=== PATIENT | male | born 1970 | race Caucasian/White ===

== ENCOUNTER 2019-04-14 05:14 | Inpatient (IN) | payer MEDICAID, OTHER ==
[2019-04-14] VITALS (20 sets, daily range): BP systolic 87–128; BP diastolic 59–97; PULSE 66–93; RESP 8–20; Ht 180.3 cm; Wt 100.0 kg
[~2019-04-14] VITALS: Ht 180.3 cm; Wt 100.0 kg
[2019-04-14] MEDS ORDERED: SOD CHLORIDE 0.9% 1,000 ML IV STA (05:20)
--- NOTE | 2019-04-14 05:24 | ERD ---
ER Documentation Chief Complaint Chief Complaint BIB RA81 for CP HPI This is a 49-year-old male with a past medical history of hypertension, hyperlipidemia, coronary artery disease with a previous CO status post stenting, noncompliant on Plavix, daily current tobacco and alcohol abuse, who is presenting with sudden onset moderate mid substernal sharp pressure-like chest pain radiating to both arms. This feels like his previous CO. He endorses shortness of breath. He was also very diaphoretic. He is nauseated but did not vomit. He feels lightheaded. The patient also had chest pain last night as well, but he took aspirin and the pain went away. Today, his symptoms did not go away. An ambulance was called. The patient was given aspirin and nitroglycerin in route to the hospital. The EKG showed an inferior STEMI. A code STEMI was called prior to patient arrival. Paramedics report that the patient was hypotensive in route to the hospital. The patient denies feeling sick recently. The patient denies fever or chills. The patient has had no headache or vision changes. The patient does not endorse neck or back pain. The patient denies abdominal pain. The patient denies changes to bowel movements or urination. The patient has had no focal deficits. The patient has had no weakness or numbness or tingling to the face or extremities. ROS All systems reviewed and are negative except as per history of present illness. Allergies Allergies: Coded Allergies: No Known Allergy (Unverified , 04/14/19) PMhx/Soc History of Surgery: Yes (angiogram w/ stent placement) Hx Cardiac Disorders: Yes (htn, cholesterol, CO) Hx Alcohol Use: Yes (social) Hx Substance Use: No Hx Tobacco Use: Yes Smoking Status: Current every day smoker FmHx Family History: No diabetes Physical Exam Vitals Vital Signs Date Temp Pulse Resp B/P (MAP) Pulse Ox O2 O2 Flow FiO2 Time Delivery Rate 04/14/19 Nasal 2 05:22 Cannula 04/14/19 98.0 79 22 136/105 95 05:16 (115) Physical Exam Const: In distress Head: Atraumatic Eyes: Normal Conjunctiva ENT: Normal External Ears, Nose and Mouth. Neck: Full range of motion. No meningismus. Resp: Clear to auscultation bilaterally Cardio: Regular rate and rhythm, no murmurs Abd: Soft, non tender, non distended. Normal bowel sounds Skin: No petechiae or rashes. Diaphoretic. Back: No midline or flank tenderness Ext: No cyanosis, or edema Neur: Awake and alert Psych: Anxious Result Diagram: 04/14/19518 Results 24 hrs Laboratory Tests Test 04/14/19 05:19 White Blood Count 14.1 10^3/ul Red Blood Count 4.88 10^6/ul Hemoglobin 14.5 g/dl Hematocrit 42.6 % Mean Corpuscular Volume 87.3 fl Mean Corpuscular Hemoglobin 29.7 pg Mean Corpuscular Hemoglobin Concent 34.0 g/dl Red Cell Distribution Width 13.1 % Platelet Count 312 10^3/UL Mean Platelet Volume 9.9 fl Immature Granulocytes % 0.600 % Neutrophils % 48.5 % Lymphocytes % 38.5 % Monocytes % 6.5 % Eosinophils % 5.1 % Basophils % 0.8 % Nucleated Red Blood Cells % 0.0 /100WBC Immature Granulocytes # 0.090 10^3/ul Neutrophils # 6.8 10^3/ul Lymphocytes # 5.4 10^3/ul Monocytes # 0.9 10^3/ul Eosinophils # 0.7 10^3/ul Basophils # 0.1 10^3/ul Nucleated Red Blood Cells # 0.0 10^3/ul Current Medications Medications Dose Sig/Ray Start Time Status Last (Trade) Ordered Route PRN Stop Time Admin Dose Reason Admin Sodium 1,000 ml @ Q1H STAT 04/14/19 04/14/19 Chloride 1,000 mls/hr IV 05:20 05:24 04/14/19 06:19 Fentanyl 50 mcg ONCE ONCE 04/14/19 DC 04/14/19 (Sublimaze) IV 05:30 05:25 04/14/19 05:31 Lidocaine 20 ml STK-MED 04/14/19 DC (Xylocaine ONCE .ROUTE 05:29 1% (Mdv) 20 04/14/19 05:30 ml) Iohexol 50 ml STK-MED 04/14/19 DC (Omnipaque ONCE .ROUTE 05:29 350mg/ ml) 04/14/19 05:30 Iodixanol 100 ml STK-MED 04/14/19 DC (Visipaque ONCE .ROUTE 05:29 Locm) 04/14/19 05:30 Heparin 1,500 ml @ STK-MED 04/14/19 DC Sodium/ ud ONCE .ROUTE 05:29 Sodium 04/14/19 05:30 Chloride Clopidogrel 600 mg ONCE ONCE 04/14/19 DC 04/14/19 Bisulfate PO 05:30 05:34 (plaVIX) 04/14/19 05:32 Heparin 5,000 unit ONCE ONCE 04/14/19 DC 04/14/19 Sodium IV 05:30 05:33 (Porcine) 04/14/19 05:32 (Heparin (1000 Units/ml)) 1,000 mcg STK-MED 04/14/19 DC Nitroglycerin ONCE .ROUTE 05:41 04/14/19 05:42 (Nitroglyceri n (Intracoronar y)) Procedures/MDM MDM The patient's presentation warrants further investigation. Previous medical records, if available, were reviewed. LABS The patient's laboratory testing was obtained and reviewed. No emergent treatment was required unless described below. CBC: Leukocytosis without shift, likely reactive, low clinical suspicion for an infection. No E/o severe anemia or thrombocytopenia Chemistry: Pending PT/INR: No E/o significant coagulopathy Troponin: Pending BNP: Pending EKG EKG read by me: Rate/Rhythm: Regular rate and rhythm at a rate of 80 bpm Intervals: Normal [place]: Normal Impression: ST elevations in the inferior leads with anterio lateral reciprocal changes concerning for an inferior CO. IMAGING Imaging and Radiology interpretation reviewed. CXR FINDINGS: The heart is not enlarged. Mediastinum is not widened. No hilar masses seen. Lungs are clear of any infiltrates. There is no effusion or pneumothorax. The osseous structures appear normal. IMPRESSION: No evidence for active cardiopulmonary disease. Electronically viewed and signed by Eliel Mckeon MD, on 04/14/2019 05:44 TREATMENT/DISPOSITION The patient presents for symptoms and EKG findings most consistent with an inferior STEMI. A code STEMI was initiated prior to arrival to the emergency department at 5:[address] Laughlin was notified at 5:03 AM. She recommended that the patient be bolused with heparin and Plavix. This was ordered per her instructions. The patient was reportedly hypotensive prior to arrival, but the patient's blood pressure had improved when assessed in the ER. The patient was transferred to the cardiac Direct Service Professional at 5:37 AM. ADMISSION At this time, I feel that the patient requires admission for further evaluation and management. The patient will be admitted to [facility] in accordance with the patient's insurance. The patient was accepted by Dr. Frausto at 05:48 AM to the ICU. Disclaimer: Inadvertent spelling and grammatical errors are likely due to E HR/dictation software use and do not reflect on the overall quality of patient care. Note that the electronic time recorded on this note does not necessarily reflect the actual time of the patient encounter. CRITICAL CARE NOTE Time: 30 minutes excluding all billable procedures. Treatments/Evaluations: The patient was at risk of hemodynamic compromise. Timing of critical care involved close serial monitoring, evaluation of the patient's medical record including previous records & current laboratory/imaging studies, potential interventions for prevention of hemodynamic/ cardiopulmonary/ neurologic compromise, maintaining tight fluid balance, and any discussions with the family and/or consultants regarding the patient's status and prognosis. Departure Diagnosis: Primary Impression: Acute inferior myocardial infarction Additional Impressions: ST elevation myocardial infarction (STEMI) Involved coronary artery: unspecified coronary artery Qualified Codes: I21.3 - ST elevation (STEMI) myocardial infarction of unspecified site Chest pain Chest pain type: unspecified Qualified Codes: R07.9 - Chest pain, unspe cified Diaphoresis Leukocytosis Leukocytosis type: unspecified Qualified Codes: D72.829 - Elevated white blood cell count, unspecified Condition: LUPE Reeves MD April 14, 2019 05:24
[2019-04-14] MEDS ORDERED: IODIXANOL LOCM 100 ML BTL ONE ×5 (05:29→08:44)
[2019-04-14] MEDS ORDERED: IOHEXOL 350MG/ML 50 ML BTL ONE (05:29)
[2019-04-14] MEDS ORDERED: LIDOCAINE 1% (MDV) 20 ML INJ ONE ×2 (05:29→07:28)
[2019-04-14] MEDS ORDERED: FENTAnyl 50 MCG/ML VIAL IV ONE (05:30)
[2019-04-14] MEDS ORDERED: CLOPIDOGREL 75 MG TAB PO ONE (05:30)
[2019-04-14] MEDS ORDERED: HEPARIN 1000 UNITS/ML 10 ML INJ IV ONE (05:30)
[2019-04-14] MEDS ORDERED: VERAPAMIL 5 MG INJ ONE (05:41)
[2019-04-14] MEDS ORDERED: NITROGLYCERIN (IC) 100 MCG/ML INJ ONE (05:41)
--- NOTE | 2019-04-14 05:50 | CONS ---
Assessment/Plan Assessment/Plan Hospital Course (Demo Recall) 49 yo with STEMI inferior wall in setting of stent 8 months ago and medication noncompliance Impression: STEMI inferior wall Tobacco abuse Hypercholesterolemia Medication noncompliance Plan: Coronary angiography. Risks and benefits reviewed and he agrees to proceed. Echo after procedure. Will psychologist counseling on smoking cessation, lifestyle. He received asa 325, heparin 5000, and clopidogrel 600 mg loading dose (pt chronically on clopidogrel but noncompliant). Consultation Date/Type/Reason Admit Date/Time 04/14/19 Date of Consultation: April 14, 2019 Type of Consult Cardiology Reason for Consultation STEMI Requesting Provider: LUPE SPRINGER MD Date/Time of Note DATE: 04/14/19 TIME: 05:45 Hx of Present Illness 49 yo with h/o CAD, 4 stents, CO with most recent stent 8 months ago, had acute onset cp one hour prior to arrival, a/w diaphoresis. Pain persists at present, ekg shows nsr with stemi inferior wall. Pt has not taken meds for "a few days", normally takes clopidogrel and "cholesterol med". He smokes. He drank 5-6 shots of alcohol last night, ended the evening around 0100. Follows with a audiovisual production specialist at [facility]. Constitutional: diaphoresis Eyes: no complaints ENT: no complaints Respiratory: shortness of breath Cardiovascular: chest pain Gastrointestinal: no complaints Genitourinary: no complaints Musculoskeletal: no complaints Skin: no complaints Neurologic: no complaints Endocrine: no complaints Lymphatic: no complaints Psychological: no complaints Immunologic: no complaints Past Medical History Medical History: coronary artery disease, high cholesterol Medications Current Medications Sodium Chloride 1,000 ml @ 1,000 mls/hr Q1H STAT IV Last administered on 04/14/19at 05:24; Admin Dose 1,000 MLS/HR; Start 04/14/19 at 05:20; Stop 04/14/19 at 06:19 Ondansetron HCl (Zofran Inj) 4 mg ER BRIDGE PRN IV NAUSEA/VOMITING; Start 04/14/19 at 06:00; Stop 04/15/19 at 05:59 Acetaminophen (Tylenol Tab) 650 mg ER BRIDGE PRN PO .MILD PAIN 1-3 OR TEMP; Start 04/14/19 at 06:00; Stop 04/15/19 at 05:59 Allergies: Coded Allergies: No Known Allergy (Unverified , 04/14/19) Past Surgical History Past Surgical Hx: angioplasty Family History Significant Family History: no pertinent family hx Social History Alcohol Use: occasionally Smoking Status: Current every day smoker Exam/Review of Systems Vital Signs Vitals Vital Signs Date Temp Pulse Resp B/P (MAP) Pulse Ox O2 O2 Flow FiO2 Time Delivery Rate 04/14/19 Nasal 2 05:22 Cannula 04/14/19 98.0 79 22 136/105 95 05:16 (115) Exam Constitutional: alert, distress, other (obese) Psych: anxiety Head: normocephalic, atraumatic Eyes: EOMI, nl lids ENMT: nl external ears & nose Neck: supple; No jvd, No bruits Respiratory: clear to auscultation, normal air movement Cardiovascular: regular rate and rhythm; No murmurs/extra sounds Gastrointestinal: soft, non-tender; No hepatomegaly Musculoskeletal: nl extremities to inspection Extremities: No edema Neurological: nl mental status, nl speech Skin: diaphoresis Labs Result Diagram: 04/14/19518 Results 24hrs Laboratory Tests Test 04/14/19 05:19 White Blood Count 14.1 H Red Blood Count 4.88 Hemoglobin 14.5 Hematocrit 42.6 Mean Corpuscular Volume 87.3 Mean Corpuscular Hemoglobin 29.7 Mean Corpuscular Hemoglobin Concent 34.0 Red Cell Distribution Width 13.1 Platelet Count 312 Mean Platelet Volume 9.9 Immature Granulocytes % 0.600 H Neutrophils % 48.5 Lymphocytes % 38.5 Monocytes % 6.5 Eosinophils % 5.1 Basophils % 0.8 Nucleated Red Blood Cells % 0.0 Immature Granulocytes # 0.090 H Neutrophils # 6.8 Lymphocytes # 5.4 H Monocytes # 0.9 Eosinophils # 0.7 H Basophils # 0.1 Nucleated Red Blood Cells # 0.0 Imaging Imaging EKG shows NSR with ST elevations in inferior leads 2, 3, avf and reciprocal changes Medications Medications Current Medications Sodium Chloride 1,000 ml @ 1,000 mls/hr Q1H STAT IV Last administered on 04/14/19at 05:24; Admin Dose 1,000 MLS/HR; Start 04/14/19 at 05:20; Stop 04/14/19 at 06:19 Ondansetron HCl (Zofran Inj) 4 mg ER BRIDGE PRN IV NAUSEA/VOMITING; Start 04/14/19 at 06:00; Stop 04/15/19 at 05:59 Acetaminophen (Tylenol Tab) 650 mg ER BRIDGE PRN PO .MILD PAIN 1-3 OR TEMP; Start 04/14/19 at 06:00; Stop 04/15/19 at 05:59 BRANDY LAURENT April 14, 2019 05:50
[2019-04-14] MEDS ORDERED: MIDAZOLAM 1 MG/ML 2 ML INJ ONE ×2 (05:57→07:57)
[2019-04-14] MEDS ORDERED: FENTAnyl 50 MCG/ML VIAL ONE (05:58)
[2019-04-14] MEDS ORDERED: ACETAMINOPHEN 325 MG TAB PO PRN ×2 (06:00→09:00)
[2019-04-14] MEDS ORDERED: ONDANSETRON 4 MG INJ IV PRN (06:00)
[2019-04-14] MEDS ORDERED: EPTIFIBATIDE 100 ML IV ONE (06:39)
[2019-04-14] MEDS ORDERED: EPTIFIBATIDE 20 ML ONE (06:39)
[2019-04-14] MEDS ORDERED: HEPARIN 1000 UNITS/ML 10 ML INJ ONE (06:51)
[2019-04-14] MEDS ORDERED: SOD CHLORIDE 0.9% 1,000 ML IV SCH (08:47)
[2019-04-14] MEDS ORDERED: CLOPIDOGREL 75 MG TAB ONE (09:00)
[2019-04-14] MEDS ORDERED: HEPARIN 5,000 UNIT/1 ML VIAL ONE (09:00)
--- NOTE | 2019-04-14 09:10 | OPR ---
Date/Time of Note Date/Time of Note DATE: 04/14/19 TIME: 08:59 Operative Report Procedure Date: April 14, 2019 Preoperative Diagnosis STEMI inferior wall Postoperative Diagnosis same Operation/Procedure Performed cor angio left heart catheterization moderate sedation Stent placement to distal RCA with 2 stents Balloon angioplasty of the ostial PDA, prox RCA, and mid RCA Surgeon see signature line Stenocaptioner Dajuan JOURNEY LINEMAN Anesthesia Type: moderate sedation Estimated Blood Loss: 150 - 200 ml's Transfusion none Specimen none Grafts/Implants Bruno Resolute 3.0 x 16 and 3.5 x 30 mm stents to distal RCA Complications none Pt Condition Post Procedure: stable Disposition: other (ICU) Indications 49 yo with known cad presents with stemi inferior wall Procedure Description Informed consent obtained. Radial access obtained, 6 F sheath placed. Diagnostic images obtained w [place] and JR4 guide. More heparin given, ACT checked. A Horacio Blue wire was passed, 2.5 x 12 mm balloon inflated. Integrilin also given. MATTIE 3 flow established. However, guide support was poor from the radial and femoral access obtained with micropuncture. JR4 guide crossed the aortic valve and pressures measured, and pullback gradient measured. The RCA was engaged, vessel re-wired down the PDA, the ostial PDA ballooned with a 2.0 x 12 mm balloon. Then wire redirected down the PL branches. Stents would not cross, vessel was giacomo wired, and a 3.0 x 16 mm Resolute advanced to the distal lesion. The giacomo wire was pulled back, a guideliner advanced, and more proximal lesions in the RCA were ballooned to permit passage of a longer 3.5x30 mm Resolute stent. This was post-dilated with a 3.5x20 mm noncompliant balloon. Final images show mattie 3 flow and good apposition of the stents with no di ssection. Patient received 600 plavix and 325 asa prior to the procedure. Left the room in stable condition. Findings: Left main - ok LAD - proximal stent okay, the remainder of the stent is severely diffusely diseased without significant area for a JAIMES target. Diag also severely diseased diffusely Ramus- small, ostial 90% lesion LCX - small vessel with mild luminal irregularities RCA - large vessel, 60% prox, 50% mid, 100% distal. PDA 90% proximal. The posterolateral branches have severe diffuse disease LVEDP - 27 Interventional results: Distal RCA -- balloon angioplastied then 2 stents placed, Resolute 3.0x16 and 3.5x30 100%-->0% PDA ostium - balloon angioplastied, 90%-->50% mid RCA -- balloon angioplastied, 50%-->30% Proximal RCA -- balloon angioplastied, 60%-->30% Prox and mid RCA angioplastied to permit passage of stent. Ostial PDA angioplastied to prevent closure of the PDA with stenting of the distal RCA. BRANDY LAURENT April 14, 2019 09:10
[2019-04-14] MEDS: morphine 2 MG INJ IV PRN ×2 (10:22→14:50)
[2019-04-14] MEDS: METOPROLOL 25 MG TAB PO SCH ×2 (10:56→20:41)
--- NOTE | 2019-04-14 12:52 | HP ---
DATE OF ADMISSION: 04/14/2019 CHIEF COMPLAINT: Chest pain. HISTORY OF PRESENT ILLNESS: A 49-year-old male with known history of coronary artery disease, hyperl ipidemia, chronic smoking, and noncompliance with medical therapy, presented to emergency room with c omplaint of acute onset of chest pain which started about 1 hour prior to arrival. The patient had a ssociated shortness of breath and diaphoresis. Initial EKG showed acute inferior wall STEMI. The pa tient was at a libertarian the night prior to admission and drank several shots of alcohol. He had not bee n taking his usual medications for several days. The patient apparently takes Plavix and a statin. The patient was immediately taken to the dental laboratory assistant by Dr. Hill. He underwent 2 stent placement to RCA as well as balloon angioplasty. The LAD was found to be chronically stenosed. At the time of m y visit, he denies any chest pain or shortness of breath. PAST MEDICAL HISTORY: 1. Coronary artery disease. 2. History of angioplasty in the past. 3. Hyperlipidemia. 4. Nicotine addiction. SOCIAL HISTORY: Patient leaves at home. and son were at the bedside at the time of my visit. He admits to smoking cigarettes on a daily basis but drinks alcohol on social occasions. The patient had 5 to 6 shots of alcohol prior to onset of his symptoms. PHYSICAL EXAMINATION: GENERAL: Well-developed, well-nourished male who is in no apparent distress. VITAL SIGNS: Stable. He is afebrile. HEENT: Extraocular muscles intact. Pupils equal and reactive to light bilaterally. Sclerae are ani cteric. Oropharynx is clear and moist. NECK: Supple, no JVD, no carotid bruits. LUNGS: Clear to auscultation bilaterally. CARDIAC: Regular rate and rhythm. No murmurs, rubs or gallops. ABDOMEN: Soft, nontender, nondistended, normoactive bowel sounds. EXTREMITIES: No clubbing, cyanosis, or edema. NEUROLOGIC: Grossly nonfocal. BUN and creatinine are 17 and 1.14. Sodium 141, potassium 3.9, chlor mikhail 111, bicarbonate 20. White blood cell count 14.1, hemoglobin 14.5, platelet count 312,000. ASSESSMENT: 1. A 49-year-old male presenting with acute inferior wall ST elevated myocardial infarction. 2. Status post urgent catheterization with 2 stents placed in the RCA as well as balloon angioplasty . 3. Diffuse coronary artery disease, not amenable to bypass surgery. 4. Hyperlipidemia. 5. Chronic smoker. 6. Noncompliance with medical therapy. PLAN: 1. Admit to ICU. 2. Continue medical therapy. 3. I had a long conversation with the patient regarding smoking cessation and compliance with medica l therapy. 4. Case was discussed with Dr. Hill. Dictated By: LISS KHANNA/CARRIE Conf#: [id number] DID#: [id number]
[2019-04-14] MEDS: NICOTINE (21 MG/24 HR) PATCH TRANSDERM SCH (18:10)
--- NOTE | 2019-04-14 19:27 | RADRPT ---
Vent Rate: 82 bpm RR Interval: 728 msec DE Interval: 178 msec QRS Duration: 81 msec QT Interval: 362 msec QTC Interval: 424 msec P-R-T [place]: 16 - -14 - 70 degrees Sinus rhythm...normal P axis, V-rate 50- 99 ST elevation, consider inferior injury...ST >0.08mV, II III aVF Electronically Signed By: Fernandez Tripathi
[2019-04-14] MEDS ORDERED: ATORVASTATIN 80 MG TAB PO SCH (21:00)
[2019-04-15] VITALS (13 sets, daily range): BP systolic 80–111; BP diastolic 52–83; PULSE 77–92; RESP 12–33
--- NOTE | 2019-04-15 07:52 | CONS ---
Assessment/Plan Assessment/Plan Hospital Course (Demo Recall) 49 yo with STEMI inferior wall, underwent angioplasty with two stents to the distal RCA, and balloon angioplasty of the ostial PDA, proximal RCA and mid RCA. Of note he has a severely diffusely diseased LAD which would be a poor target for CABG were he to have progression of his CAD. Impression: STEMI inferior wall, post successful angioplasty and stent placement Tobacco abuse Hypercholesterolemia Medication noncompliance Plan: Continue metoprolol, asa, clopidogrel, atorvastatin Awaiting echo Spoke at length with him on smoking cessation, eating better, exercise, and compliance with medications. He expresses interest in being discharged with a nicotine patch and states that yesterday's events scared him enough to be compliant Needs to follow up in one week. Has a marshmallow machine operator at [facility] who he has not seen in over a year, I've offered him my information and can see him in the office shortly. Consultation Date/Type/Reason Admit Date/Time April 14, 2019 at 05:41 Initial Consult Date 04/14/19 Type of Consult Cardiology Requesting Provider: LUPE SPRINGER MD Date/Time of Note DATE: 04/15/19 TIME: 07:45 24 HR Interval Summary Free Text/Dictation No events overnight. Patient states no pain in chest, wrist, or right groin. States willingness to be compliant, quit smoking, take his meds, etc, feels that yesterday's heart attack scared him and he was afraid he would not see his family again. Exam/Review of Systems Vital Signs Vitals Vital Signs Date Temp Pulse Resp B/P (MAP) Pulse Ox O2 O2 Flow FiO2 Time Delivery Rate 04/15/19 89 21 81/56 (64) 89 Room Air 06:00 04/15/19 98.4 04:00 04/14/19 2 05:22 Intake and Output 04/14/19 04/14/19 04/15/19 1515:00 23:00 07:00 IntakeIntake Total 430 ml 600 ml OutputOutput Total 1100 ml BalanceBalance -670 ml 600 ml Exam Constitutional: alert, oriented, other (obese) Psych: no complaints, nl mood/affect Head: normocephalic, atraumatic Eyes: EOMI, nl lids ENMT: nl external ears & nose Neck: supple; No jvd, No bruits Respiratory: clear to auscultation, normal air movement Cardiovascular: regular rate and rhythm, nl pulses (right groin site intact, no bruit, no hematoma, mild bruising. Right wrist with good radial pulse and hand warm); No murmurs/extra sounds Gastrointestinal: soft, nl liver, spleen, non-tender Musculoskeletal: nl extremities to inspection Extremities: No edema Neurological: nl mental status, nl speech Skin: nl turgor Labs Result Diagram: 04/15/19 0514 04/15/19 0514 Results 24hrs Laboratory Tests Test 04/14/19 12:31 04/14/19 17:22 04/15/19 05:14 Creatine Kinase 2536 H 2439 H Creatine Kinase Index 5.8 5.8 Creatinine Kinase MB (Mass) 146.00 H 141.00 H Troponin I 70.300 *H 57.300 *H 38.200 *H White Blood Count 12.2 H Red Blood Count 4.66 L Hemoglobin 13.8 L Hematocrit 41.2 L Mean Corpuscular Volume 88.4 Mean Corpuscular Hemoglobin 29.6 Mean Corpuscular Hemoglobin Concent 33.5 Red Cell Distribution Width 13.5 Platelet Count 237 # Mean Platelet Volume 10.3 Immature Granulocytes % 0.400 Neutrophils % 71.2 Lymphocytes % 17.3 Monocytes % 8.1 Eosinophils % 2.5 Basophils % 0.5 Nucleated Red Blood Cells % 0.0 Immature Granulocytes # 0.050 H Neutrophils # 8.7 H Lymphocytes # 2.1 Monocytes # 1.0 H Eosinophils # 0.3 Basophils # 0.1 Nucleated Red Blood Cells # 0.0 Sodium Level 137 Potassium Level 3.9 Chloride Level 106 Carbon Dioxide Level 27 Anion Gap 4 L Blood Urea Nitrogen 15 Creatinine 0.98 Est Glomerular Filtrat Rate mL/min > 60 Glucose Level 111 # Calcium Level 8.4 Triglycerides Level 260 H Cholesterol Level 226 H LDL Cholesterol, Calculated 152 HDL Cholesterol 22 L Cholesterol/HDL Ratio 10.2 Imaging Imaging EKG this am shows nsr at 88 bpm, frequent pvc's in a trigeminy pattern Medications Medications Current Medications Aspirin (Halfprin) 81 mg DAILY PO ; Start 04/15/19 at 09:00 Clopidogrel Bisulfate (plaVIX) 75 mg DAILY PO ; Start 04/15/19 at 09:00 Metoprolol Tartrate (Lopressor) 25 mg BID PO Last administered on 04/14/19at 20:41; Admin Dose 25 MG; Start 04/14/19 at 09:00 Acetaminophen (Tylenol Tab) 650 mg Q4H PRN PO PAIN; Start 04/14/19 at 09:00 Morphine Sulfate (morphine) 1 mg Q1H PRN IV PAIN Last administered on 04/14/19at 14:50; Admin Dose 1 MG; Start 04/14/19 at 09:00 Atorvastatin Calcium (Lipitor) 80 mg DAILY@21 PO Last administered on 04/14/19at 20:41; Admin Dose 80 MG; Start 04/14/19 at 21:00 Nicotine (Nicoderm 21 Mg/ 24hr) 1 patch DAILY TRANSDERM Last administered on 04/14/19at 18:10; Admin Dose 1 PATCH; Start 04/14/19 at 17:00 BRANDY LAURENT April 15, 2019 07:52
[2019-04-15] MEDS ORDERED: METO-448 PO (08:59)
[2019-04-15] MEDS ORDERED: ATOR-2 PO (08:59)
[2019-04-15] MEDS ORDERED: NICO-544 TD (08:59)
[2019-04-15] MEDS ORDERED: NICO-546 TRANSDERM (08:59)
[2019-04-15] MEDS ORDERED: ASPI-1044 PO (08:59)
[2019-04-15] MEDS ORDERED: CLOP75TA28 PO (08:59)
[2019-04-15] MEDS ORDERED: ASPIRIN (EC) 81 MG TAB PO SCH (09:00)
[2019-04-15] MEDS ORDERED: CLOPIDOGREL 75 MG TAB PO SCH (09:00)
--- NOTE | 2019-04-15 09:00 | PDOCDIS ---
Discharge Instructions CONDITION [id number] Patient Condition: [id number] Good HOME CARE INSTRUCTIONS: [id number] Diet Instructions: [id number] Low Fat /Cholesterol ACTIVITY: [id number] Activity Restrictions: [id number] Slowly Increase Activity FOLLOW UP/APPOINTMENTS Follow-up Plan pcp [address] Hill 1 week LISS ARIAS MD April 15, 2019 09:00
[2019-04-15] MEDS: NICOTINE (21 MG/24 HR) PATCH TRANSDERM SCH (09:30)
[2019-04-15] MEDS: METOPROLOL 25 MG TAB PO SCH (09:31)
--- NOTE | 2019-04-15 09:31 | DS ---
DATE OF ADMISSION: 04/14/2019 DATE OF DISCHARGE: 04/15/2019 HOSPITAL COURSE: 1. A 49-year-old male with acute inferior wall ST elevated myocardial infarction. 2. Status post stent placement to RCA x2 and balloon angioplasty. 3. Hyperlipidemia. 4. Chronic smoker. 5. Noncompliance. HOSPITAL COURSE: A 49-year-old male with a history of coronary artery disease in the past and noncom pliance with medical therapy, presented to emergency room with acute onset chest pain associated with diaphoresis. The patient was diagnosed with acute inferior wall ST elevated myocardial infarction. The patient was urgently taken to the [facility] by Dr. Hill. Left main was okay. Proximal stent was in place. There was severe diffuse disease without significant area for JAIMES target. The diagon al was also severely diseased. There was an ostial 90% lesion. Left circumflex was a small vessel w ith micro luminal irregularities. RCA was a large vessel with 60% proximal, 50% mid as well as 100% distal stenosis. PDA had 90% proximal stenosis. The patient underwent balloon angioplasty and 2 chanel nts were placed to the distal RCA. PDA underwent balloon angioplasty with stenosis, decreasing from 90% to 50%. Mid RCA underwent balloon angioplasty with reduction in stenosis from 50% to less than 3 0%. Proximal RCA also underwent balloon angioplasty with decrease in occlusion from 60% to less than 30%. Procedure was well tolerated. The patient remained free of chest pain following the procedure . Serial troponins were peaked at 70 and decreased to 38. Fasting lipid panel showed triglyceride of 260, cholesterol of 226, LDL of 152, HDL of 22. The patie nt was started on high dose Lipitor. I had a long discussion with the patient regarding smoking cessation and lifestyle changes. The even t scared him significantly and he seems to be determined to quit smoking. He requested nicotine patc hes. The patient is in stable condition for discharge. Dietary modification was also discussed. MEDICATIONS ON DISCHARGE: 1. Aspirin 81 mg p.o. daily. 2. Plavix 75 mg p.o. daily. 3. Lipitor 80 mg p.o. at bedtime. 4. Lopressor 25 mg p.o. b.i.d. 5. Nicotine patch 21 mg daily x7 days, then 14 mg daily x7 days, then 7 mg daily x7 days. 6. Follow up with PCP in 1 week. 7. Follow up with Dr. Hill in 1 week. Please note the patient has his own incoming inspector at [facility]. He will eventually follow up with h is own incoming inspector. Dictated By: LISS KHANNA/CARRIE Conf#: [id number] DID#: [id number] CC: LISS ARIAS MD; BRANDY HILL MD;*EndCC*
--- NOTE | 2019-04-15 14:46 | RADRPT ---
Echocardiogram Report Patient Name: SENG VILLAPatient ID: [id number] : 1970 (49y 3m)Study Date: 04/15/2019 8:10:34 AM Gender: MAccession #: [id number] Tech: LE Location: [facility] Ref.Physician: SHAYNA HILL Height(Cm): BSA: Weight(Kg): Quality: GoodOrder Physician: SHAYNA HILL Account #: Procedures: Echocardiographic Report: Transthoracic echocardiogram with complete 2D, M-Mode, and doppler examination. Indications: PR. Measurements: 2D/M Mode Doppler Measurement Value Normal Range Measurement Value Normal Range LVIDd 2D 5.3 [ 4.2 - 5.8 ] cm AV Mean Christopher 1.0 [ 70.0 - 90.0 ] cm/sec LVIDs 2D 3.6 [ 2.5 - 4.0 ] cm AV Mean PG 4.0 [ 2.0 - 4.0 ] mmHg LVPWd 2D 1.5 [ 0.6 - 1.0 ] cm AV Peak Christopher 1.4 [ 100.0 - 170.0 ] cm/sec IVSd 2D 1.5 [ 0.6 - 1.0 ] cm AV Peak PG 8.0 [ 2.0 - 9.0 ] mmHg EDV 2D 135.0 [ 62.0 - 150.0 ] ml AV VTI 23.2 cm ESV 2D 54.1 [ 21.0 - 61.0 ] ml LVOT Peak Christopher 1.0 [ 70.0 - 110.0 ] cm/sec EF 2D 59.9 [ 52.0 - 72.0 ] percent LVOT Peak PG 4.0 [ 2.0 - 6.0 ] mmHg LVOT Diam 2.1 [ 2.3 - 2.9 ] cm MV E Peak Christopher 0.8 [ 60.0 - 130.0 ] cm/sec MV A Peak Christopher 0.7 [ 100.0 - 120.0 ] cm/sec MV E/A 1.2 [ 0.8 - 1.5 ] ratio MV Decel Time 155 [ 104 - 258 ] msec Lat E` Chrsitopher 0.1 [ 10.0 - 15.0 ] cm/sec Lateral E/E` 11.9 [ 1.0 - 2.0 ] ratio Med E` Christopher 0.0 cm/sec MV E/A 1.2 [ 0.8 - 1.5 ] ratio PV Peak Christopher 0.8 [ 40.0 - 80.0 ] cm/sec PV Peak PG 3.0 mmHg Findings: Left Ventricle: Normal left ventricular systolic function. Normal left ventricular cavity size. Moderate concentric left ventricular hypertrophy. Ejection fraction is visually estimated at 60 %. Tissue Doppler/Mitral Doppler indices are consistent with pseudonormalization with mildly elevated left atrial pressure (Stage II diastolic dysfunction). Right Ventricle: Normal right ventricular size. Normal right ventricular systolic function. Left Atrium: There is mild enlargement of left atrium. Right Atrium: The right atrium is normal in size. Mitral Valve: Normal appearance and function of the mitral valve with trace physiologic regurgitation. Aortic Valve: Normal appearance of the aortic valve. No significant aortic stenosis or insufficiency. Tricuspid Valve: Normal appearance and function of the tricuspid valve with trace physiologic regurgitation. Pulmonic Valve: Pulmonic valve not well visualized. No evidence of pulmonic regurgitation. Pericardium: Trivial pericardial effusion. Aorta: There is mild aortic root dilation. IVC: The IVC is not well visualized. Conclusions: Normal left ventricular systolic function without wall motion abnormalities. Moderate concentric left ventricular hypertrophy. Pseudonormal diastolic function. Trace mitral and tricuspid regurgitation. Electronically Signed By: Shayna Hill 2019-04-15 14:45:29 PDT
--- NOTE | 2019-04-17 09:08 | RADRPT ---
Vent Rate: 88 bpm RR Interval: 680 msec WA Interval: 166 msec QRS Duration: 81 msec QT Interval: 336 msec QTC Interval: 407 msec P-R-T Petroleum: 17 - -18 - 56 degrees Sinus rhythm...with PVC, Ventricular trigeminy. Electronically Signed By: Booker Puente
== END 2019-04-15 10:45 | disposition home or self-care (01) | DRG 247 ==
LOC: E/R 05:14 → REC 05:41 → ICU 09:24
PROVIDERS: ADMIT Internal Medicine; ATTEND Internal Medicine
PROC: 02703ZZ Dilation of Coronary Artery, One Artery, Percutaneous Approach (ICD-10-PCS; 2019-04-14)
PROC: 4A023N7 Measurement of Cardiac Sampling and Pressure, Left Heart, Percutaneous Approach (ICD-10-PCS; 2019-04-14)
PROC: B211YZZ Fluoroscopy of Multiple Coronary Arteries using Other Contrast (ICD-10-PCS; 2019-04-14)
PROC: 027035Z Dilation of Coronary Artery, One Artery with Two Drug-eluting Intraluminal Devices, Percutaneous Approach (ICD-10-PCS; principal; 2019-04-14 05:00)
DX: I21.19 ST elevation (STEMI) myocardial infarction involving other coronary artery of inferior wall (principal); I25.10 Atherosclerotic heart disease of native coronary artery without angina pectoris; E78.5 Hyperlipidemia, unspecified; F17.200 Nicotine dependence, unspecified, uncomplicated; Z91.19 Patient's noncompliance with other medical treatment and regimen; Z98.61 Coronary angioplasty status
CPT/HCPCS: 36415; 71045; 80048; 80061; 82550; 82553; 83880; 84484; 85025; 85610; 85730; 87081; 92928; 92929; 93005; 93306; 93458; 96374; 96375; C1725; C1874; C1887; C1894; J1327; J1644; J2250; J2270; J3010; J7030; Q9967